=== PATIENT | female | born 1980 | race Asian ===

== ENCOUNTER 2024-10-15 13:00 | Emergency (ER) | payer BC ==
[2024-10-15] MEDS ORDERED: Sodium Chloride 0.9% 10 ML Syringe FLUSH PRN (13:07)
[2024-10-15] MEDS: Ketorolac 30 MG/ML SDV IVPUSH ONE (13:22)
[2024-10-15] MEDS: Ondansetron 4 MG/2 ML SDV IVPUSH ONE (13:22)
[2024-10-15 13:25] LABS: BASOPHILS PERCENT AUTO 0.3 % (0.0-1.0); EOSINOPHILS PERCENT AUTO 0.1 % (1.0-3.0); LYMPHOCYTES PERCENT AUTO 10.0 % (20.5-50.1); MONOCYTES PERCENT AUTO 0.7 % (2-8); NEUTROPHILS PERCENT AUTO 88.9 % (42.2-75.2); PLATELET COUNT,PLT 248 10^3/uL (150-450); RED BLOOD CELL COUNT 4.83 10^6/uL (4.2-5.4); WHITE BLOOD CELL COUNT,WBC 7.0 10^3/uL (5.0-10.0)
[2024-10-15 13:33] LABS: APPEARANCE,URINE CLOUDY (CLEAR); GLUCOSE,URINE NEGATIVE (NEGATIVE); OCCULT BLOOD,URINE MODERATE (NEGATIVE)
[2024-10-15 13:41] LABS: EPITHELIAL CELLS,URINE OCCASIONAL /HPF (NOT SEEN)
[2024-10-15 13:47] LABS: A/G RATIO 0.8; ALANINE AMINOTRANSFERASE,ALT 34.0 U/L (14-59); ASPARTATE AMNIOTRANSFERASE,AST 31.0 U/L (15-37); BILIRUBIN TOTAL 0.7 mg/dL (0.2-1.0); BLOOD UREA NITROGEN,BUN 9.0 mg/dL (7-18); CARBON DIOXIDE,CO2 26.0 mmol/L (21-32); CHLORIDE,CL 99.0 mmol/L (98-107); CREATININE 0.88 mg/dL (0.55-1.02); EST CRCL DRUG DOSING (CG) 68.89 mL/min; GLUCOSE RANDOM 98.0 mg/dL (70-99); POTASSIUM,K 3.3 mmol/L (3.5-5.1); PROTEIN TOTAL,TP 8.2 g/dL (6.4-8.2); SODIUM,NA 136.0 mmol/L (136-145)
[2024-10-15 13:49] LABS: ESTIMATED GFR 84.0 mL/min (>=60)
[2024-10-15 13:51] LABS: LACTIC ACID 2.1 mmol/L (0.4-2.0)
[2024-10-15] MEDS: Potassium Chloride 10 MEQ Tab.ER PO ONE (13:59)
[2024-10-15] MEDS: Take Home: Levofloxacin 500 MG Tab, 3 Tab Pack PO ONE (14:29)
== END 2024-10-15 14:41 | disposition home or self-care (01) ==
LOC: DL.ED 13:00
DX: N12 Tubulo-interstitial nephritis, not specified as acute or chronic (principal)
CPT/HCPCS: 36415; 74176; 80053; 81001; 81025; 83605; 83735; 85025; 86140; 87040; 87077; 87086; 87088; 87186; 96374; 96375; 99284; 99285; A9270; J0696; J1885; J2405; J7030